=== PATIENT | female | born 1950 | race Caucasian/White ===

== ENCOUNTER 2018-09-13 15:45 | Emergency (ER) | payer OTHER, MEDICARE ==
[2018-09-13] MEDS ORDERED: SODIUM CHLORIDE 0.9% 1,000 ML IV ONE (16:15)
[2018-09-13] MEDS: ADENOSINE 6 MG/2 ML VIAL IVP STA ×2 (16:22→17:12)
--- NOTE | 2018-09-13 17:28 | ED Physician Documentation ---
History of Present Illness - Stated complaint Stated Complaint: SOA,RAPID HEART RATE - Chief complaint Chief Complaint: Cardiac - Additonal information Additional information: hx from pt 68 female hx SVT many times in the past onset today several hr ago she initially felt pain but no LOC feels palp but no sig CP or SOA tried vagal maneuvers s success no excess caffeine decongestants etc taking her thyroid meds and thyroid fxn has been fine no long distance travel ro leg swelling Review of Systems Constitutional: denies: Fever Cardiac: reports: Palpitations. denies: Chest pain / pressure Respiratory: denies: Dyspnea Musculoskeletal: denies: Extremity swelling Neurologic: reports: Near syncope. 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 : None HEENT: None Psych: None Musculoskeletal: Osteoarthritis Derm: None - Past Surgical History HEENT: Tonsil/Adenoidectomy - Present Medications Home Medications: Ambulatory Orders Medication Instructions Recorded Confirmed Aspirin [Adult Aspirin Regimen] 1 tab PO DAILY 09/13/18 09/13/18 Levothyroxine Sodium [Synthroid] 1 tab PO DAILY 09/13/18 09/13/18 - Allergies Allergies/Adverse Reactions: Allergies Allergy/AdvReac Type Severity Reaction Status Date / Time codeine AdvReac Hallucinati Verified 09/13/18 16:04 ons - Social History Does the pt smoke?: No Smoking Status: Never smoker Does the pt drink ETOH?: Yes Does the pt have substance abuse?: No - Immunizations Immunizations are current?: Yes - POLST Patient has POLST: No PD ED PE NORMAL - Vitals Vital signs reviewed: Yes - General General: Alert and oriented X 3 - Cardiac Cardiac: No: RRR (tachy) - Respiratory Respiratory: No respiratory distress, Clear bilaterally - Extremities Extremities: No edema, No calf tenderness / cord - Neuro Neuro: Alert and oriented X 3 Results - Vitals Vitals: Vital Signs - 24 hr 09/13/18 09/13/18 09/13/18 16:01 16:05 16:45 Temperature Heart Rate 177 H 180 H 94 Respiratory 18 16 16 Rate Blood Pressure 143/103 H 117/92 H 118/79 O2 Saturation 97 97 96 09/13/18 09/13/18 09/13/18 17:09 17:31 17:48 Temperature 36.6 C Heart Rate 94 91 Respiratory 14 16 Rate Blood Pressure 118/68 118/77 O2 Saturation 95 97 Oxygen O2 Source Room air - EKG (time done) 1600 Rate: Rate (enter#) (170) Rhythm: SVT Ischemia: ST depression (rate related) 1626 Rate: Rate (enter#) (101) Rhythm: NSR Intervals: Normal NM Procedures - Cardioversion 1615 Time of attempt: 16:15 Risks, benefits, alternatives explained to: Pt Prep: IV Meds: Adenocard (6) Post cardioversion rhythm: NSR Complications: Other (successful, no complications). No: Hypotension PD MEDICAL DECISION MAKING - ED course ED course: SVT hx same tried vagals in ED as well s success easily concerted with adenosine 6 mg do not feel labs necessary given hx same Departure - Departure Disposition: 01 Home, Self Care Clinical Impression: SVT (supraventricular tachycardia) Condition: Good Instructions: ED Tachycardia Pat PSVT Comments: Continue your usual medications. Minimize caffeine, decongestants and other stimulants Return if worse
[2018-09-13 17:49] VITALS: BP 118/77
== END 2018-09-13 18:04 | disposition home or self-care (01) ==
LOC: ED 15:45
DX: I47.1 Supraventricular tachycardia (principal)
CPT/HCPCS: 93005; 96360; 99283; J0153

== ENCOUNTER 2021-06-05 23:33 | Outpatient (CLI) | payer MEDICARE, OTHER | END 2021-06-05 23:34 | disposition critical access hospital (66) | LOC: EMS 23:33 | DX: U07.1 COVID-19 (principal) | CPT/HCPCS: A0425; A0429 ==

== ENCOUNTER 2021-06-06 00:05 | Emergency (ER) | payer MEDICARE, OTHER ==
[2021-06-06] MEDS ORDERED: ONDANSETRON 4 MG/2 ML VIAL IVP STA (00:10)
[2021-06-06 00:53] LABS: BASOPHILS % (AUTO) 0.2 %; EOSINOPHILS % (AUTO) 0.4 %; HGB - HEMOGLOBIN 13.7 g/dL (12.0-16.0); LYMPHOCYTES # (AUTO) 0.8 10^3/uL (1.5-3.5); LYMPHOCYTES % (AUTO) 17.2 %; MEAN CORPUSCULAR HEMOGLOBIN 29.8 pg (27.0-31.0); MEAN CORPUSCULAR HGB CONC 34.3 g/dL (32.0-36.0); MEAN PLATELET VOLUME 10.5 fL (7.9-10.8); MONOCYTES # (AUTO) 0.5 10^3/uL (0.0-1.0); MONOCYTES % (AUTO) 11.8 %; NEUTROPHILS # (AUTO) 3.1 10^3/uL (1.5-6.6); NEUTROPHILS % (AUTO) 70.2 %; PLT - PLATELET COUNT 115 10^3/uL (130-450); RED CELL DISTRIBUTION WIDTH 12.2 % (12.0-15.0); WHITE BLOOD COUNT 4.5 x10^3/uL (4.8-10.8)
[2021-06-06 00:54] LABS: VBG PH 7.426 (7.31-7.41)
[2021-06-06 00:55] LABS: VBG BASE EXCESS 1.3 mmol/L (-2 - +2); VBG HCO3 25.7 mmol/L (23-28); VBG OXYGEN SATURATION 79.3 % (60-80); VBG PO2 41.4 mmHg (25-47); VBG TOTAL CO2 26.9 mmol/L (24-29)
[2021-06-06 01:03] LABS: ALBUMIN 3.7 g/dL (3.2-5.5); BILIRUBIN,TOTAL 1.5 mg/dL (0.2-1.0); CALCIUM 8.5 mg/dL (8.5-10.3); CREATININE 1.1 mg/dL (0.4-1.0); CRP HIGH SENSITIVITY 52.4 mg/L; POTASSIUM 3.9 mmol/L (3.5-5.0); TOTAL PROTEIN 7.4 g/dL (6.7-8.2)
--- NOTE | 2021-06-06 01:08 | ED Physician Documentation ---
History of Present Illness - Stated complaint Stated Complaint: C+/ BODY ACHES/ SOA - Chief complaint Chief Complaint: Resp - History obtained from History obtained from: Patient - Additonal information Additional information: 70-year-old woman with history of coagulopathy, high blood pressure, hypothyroidism status post thyroidectomy, heart surgery "for tachycardia about three years ago" presents with positive Covid test May 25 and 1 week worsening Covid symptoms of shortness of breath, nausea, productive cough, vomiting today, chest pain worse with deep breathing. Denies history of clots. Not on estrogen, denies leg swelling denies diarrhea or abdominal pain. Review of Systems Ten Systems: 10 systems reviewed and negative Constitutional: reports: Fever, Chills, Myalgias, Fatigue Cardiac: reports: Chest pain / pressure Respiratory: reports: Dyspnea, Cough GI: reports: Nausea, Vomiting. 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 : None HEENT: None Psych: None Musculoskeletal: Osteoarthritis Derm: None - Past Surgical History Past Surgical History: Yes HEENT: Tonsil/Adenoidectomy - Present Medications Home Medications: Ambulatory Orders Medication Instructions Recorded Confirmed Aspirin [Adult Aspirin Regimen] 1 tab PO DAILY 09/13/18 06/06/21 Levothyroxine Sodium [Synthroid] 1 tab PO DAILY 09/13/18 06/06/21 - Allergies Allergies/Adverse Reactions: Allergies Allergy/AdvReac Type Severity Reaction Status Date / Time codeine AdvReac Hallucinati Verified 06/06/21 01:31 ons - Social History Does the pt smoke?: No Smoking Status: Never smoker Does the pt drink ETOH?: Yes Does the pt have substance abuse?: No - Immunizations Immunizations are current?: Yes - POLST Patient has POLST: No PD ED PE NORMAL - Vitals Vital signs reviewed: Yes - General General: Alert and oriented X 3, Other (older woman, appears stated age, uncomfortable appearing) - HEENT HEENT: Atraumatic, PERRL, EOMI, Pharynx benign - Neck Neck: Supple, no meningeal sign - Cardiac Cardiac: RRR - Respiratory Respiratory: Other (BL rhonchi) - Abdomen Abdomen: Non tender, Non distended - Derm Derm: Normal color, Warm and dry - Extremities Extremities: No deformity - Neuro Neuro: Alert and oriented X 3 - Psych Psych: Normal mood, Normal affect Results - Vitals Vitals: Vital Signs - 24 hr 06/06/21 06/06/21 06/06/21 00:00 02:16 04:22 Temperature 36.4 C L Heart Rate 83 85 103 H Respiratory 18 19 20 Rate Blood Pressure 126/82 H 134/83 H 141/88 H O2 Saturation 95 95 98 Oxygen O2 Source Room air - EKG (time done) 0014 Rate: Rate (enter#) (86) Rhythm: NSR [place]: Normal Intervals: Normal UT QRS: Normal Ischemia: Other (no stemi) - Labs Labs: Laboratory Tests 06/06/21 06/06/21 06/06/21 00:40 00:40 00:40 WBC 4.5 L RBC 4.60 Hgb 13.7 Hct 40.0 MCV 87.0 MCH 29.8 MCHC 34.3 RDW 12.2 Plt Count 115 L MPV 10.5 Neut # (Auto) 3.1 Lymph # (Auto) 0.8 L [place] # (Auto) 0.5 Eos # (Auto) 0.0 Baso # (Auto) 0.0 Absolute Nucleated RBC 0.00 Nucleated RBC % 0.0 ESR 41 H D-Dimer VBG pH VBG pCO2 VBG pO2 VBG HCO3 VBG Total CO2 VBG O2 Saturation VBG Base Excess Sodium 133 L Potassium 3.9 Chloride 96 L Carbon Dioxide 24 Anion Gap 13.0 BUN 25 H Creatinine 1.1 H Estimated GFR (MDRD) 49 L Glucose 122 H Lactic Acid Calcium 8.5 Total Bilirubin 1.5 H AST 33 ALT 25 Alkaline Phosphatase 60 C-React Prot High Sens 52.4 Total Protein 7.4 Albumin 3.7 Globulin 3.7 Albumin/Globulin Ratio 1.0 Lipase 41 06/06/21 06/06/21 06/06/21 00:40 00:40 00:55 WBC RBC Hgb Hct MCV MCH MCHC RDW Plt Count MPV Neut # (Auto) Lymph # (Auto) [place] # (Auto) Eos # (Auto) Baso # (Auto) Absolute Nucleated RBC Nucleated RBC % ESR D-Dimer 726.4 H VBG pH 7.426 H VBG pCO2 40.0 L VBG pO2 41.4 VBG HCO3 25.7 VBG Total CO2 26.9 VBG O2 Saturation 79.3 VBG Base Excess 1.3 Sodium Potassium Chloride Carbon Dioxide Anion Gap BUN Creatinine Estimated GFR (MDRD) Glucose Lactic Acid 0.9 Calcium Total Bilirubin AST ALT Alkaline Phosphatase C-React Prot High Sens Total Protein Albumin Globulin Albumin/Globulin Ratio Lipase PD MEDICAL DECISION MAKING - ED course ED course: Patient felt better, no longer symptomatic s/p IV zofran. d-dimer elevated. will obtain CTA to eval for PE given hypercoaguability at baseline in conjunction with covid-19 symptoms which put her at further risk of clots. CTA negative. strict return precautions discussed. Regeneron information provided and patient may return tomorrow for MAB treatment. Departure - Departure Disposition: 01 Home, Self Care Clinical Impression: COVID-19 Condition: Stable Instructions: COVID-19 [facility], COVID-19 [facility]ly [facility] Department Statement Comments: You were seen in the emergency department for a mild case of COVID-19. Your labwork and CT of the chest did not show severe changes requiring hospitalization. However, given your older age (greater than 65 years of age) and medical history, you do meet criteria for Regeneron monoclonal antibody treatment. This is offered through our pharmacy Wednesday through Wednesday during normal business hours. You should call ahead to make sure that the pharmacy is able to provide the treatment and then check into the emergency department for 1 hour infusion followed by 1 hour observation. Please note that you should follow-up with your primary doctor via telehealth as well and return to the emergency department immediately if you have worsening shortness of breath, or any other new or worsening symptoms or other concerns.
[2021-06-06] MEDS ORDERED: SODIUM CHLORIDE 0.9% 1,000 ML IV STA (01:56)
[2021-06-06] MEDS ORDERED: IOPAMIDOL-300 100 ML VIAL ONE (02:40)
[2021-06-06] MEDS ORDERED: IOPAMIDOL-300 100 ML VIAL IVP ONE (03:35)
[2021-06-06 06:26] VITALS: BP 140/80
--- NOTE | 2021-06-06 07:56 | XRAY Report ---
PROCEDURE: Chest 1 View X-Ray INDICATIONS: covid+ TECHNIQUE: One view of the chest was acquired. COMPARISON: None FINDINGS: Surgical changes and devices: None. Lungs and pleura: No pleural effusions or pneumothorax. Ill-defined patchy opacities noted in the kalee ng bases bilaterally which could represent atelectasis or early pneumonia. Mediastinum: Mediastinal contours appear normal. Heart size is normal. Bones and chest wall: No suspicious bony lesions. Overlying soft tissues appear unremarkable. IMPRESSION: Bibasilar atelectasis versus early pneumonia. Reviewed by: Alexandra Vee MD, PhD on 06/06/2021 7:55 AM PDT Approved by: Alexandra Vee MD, PhD on 06/06/2021 7:55 AM PDT Station ID: [id number]
--- NOTE | 2021-06-06 09:04 | CT Report ---
PROCEDURE: ANGIO CHEST W/WO INDICATIONS: elevated d-dimer, +covid, hypercoagulable CONTRAST: IV CONTRAST: Isovue 300 ml: 80 PO CONTRAST: *NO PO CONTRAST TECHNIQUE: After the administration of intravenous contrast, images were acquired from the pulmonary apices to t he posterior costophrenic angles. 3-dimensional maximum intensity projection (MIP) coronal and sagit cholo reformats were then acquired through the thorax. For radiation dose reduction, the following was used: automated exposure control, adjustment of mA and/or kV according to patient size. COMPARISON: Chest x-ray 06/06/2021 FINDINGS: Image quality: Excellent. Pulmonary arteries: Pulmonary arteries are normal in size, and demonstrate no intraluminal filling d efects to suggest central pulmonary embolism. Lungs and pleura: Patchy confluent areas of groundglass opacity are present within the lungs bilatera lly, in a predominantly peripheral pattern. No pleural effusions or pneumothorax. Central and periph eral airways are patent. Mediastinum: Heart size is normal, without pericardial effusion. Borderline prominence of mediastina l and hilar lymph nodes. Thoracic aorta is normal in caliber and enhancement. Esophagus is normal in caliber, with mild hiatal hernia. Bones and chest wall: No suspicious bony lesions. Ribs and thoracic spine appear intact throughout. No axillary or supraclavicular adenopathy. The thyroid is normal in size and there are no incident al findings. Postsurgical changes are noted within the right lower neck, incompletely visualized. Abdomen: Spleen is enlarged. Left renal cyst is noted. Otherwise, visualized upper abdominal solid o rgans appear normal in the early arterial phase of enhancement. IMPRESSION: 1. Groundglass opacities bilaterally most consistent with pneumonia. 2. Borderline enlarged based on hilar lymph nodes suspected to be reactive in nature. 3. No pulmonary embolism. The above findings are concordant with preliminary report. Reviewed by: Belgica Barclay MD on 06/06/2021 9:02 AM PDT Approved by: Belgica Barclay MD on 06/06/2021 9:02 AM PDT Station ID: [id number]
== END 2021-06-06 06:20 | disposition home or self-care (01) ==
LOC: ED 00:05
DX: U07.1 COVID-19 (principal); R79.89 Other specified abnormal findings of blood chemistry; D68.59 Other primary thrombophilia
CPT/HCPCS: 36415; 71045; 71275; 80053; 82803; 83605; 83690; 85025; 85379; 85651; 86141; 87040; 93005; 96374; 99284; Q9967

== ENCOUNTER 2021-06-06 06:19 | Outpatient (CLI) | payer MEDICARE, OTHER | END 2021-06-06 06:20 | disposition home or self-care (01) | LOC: EMS 06:19 | PROVIDERS: ATTEND Emergency Medicine | DX: U07.1 COVID-19 (principal) | CPT/HCPCS: A0425; A0428 ==

== ENCOUNTER 2021-06-09 14:30 | Emergency (ER) | payer MEDICARE, OTHER ==
--- NOTE | 2021-06-09 15:22 | ED Physician Documentation ---
PD HPI URI - Stated complaint Stated Complaint: C+ HIGH HR - History obtained from History obtained from: Patient - History of Present Illness Timing - onset: How many days ago (12-13) Timing duration: Weeks (2) Timing details: Abrupt onset, Now resolved (She has persistent cough and wheezing. She has not had fevers for for 5 days. Still general weakness and some dyspnea on exertion.) Associated symptoms: No: Fever (not for several days), Chills Contributing factors: Sick contact (her is in the hospital with COVID currently, on oxygen supplementation.), Unimmunized Similar symptoms before: Has not had sx before Recently seen: Emergency Dept (She was seen 3 days ago for dyspnea related to the Covid. She had blood tests chest x-ray and a CT of the chest. 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 : None HEENT: None Psych: None Musculoskeletal: Osteoarthritis Derm: None - Past Surgical History Past Surgical History: Yes HEENT: Tonsil/Adenoidectomy - Present Medications Home Medications: Ambulatory Orders Medication Instructions Recorded Confirmed Aspirin [Adult Aspirin Regimen] 1 tab PO DAILY 09/13/18 06/06/21 Levothyroxine Sodium [Synthroid] 1 tab PO DAILY 09/13/18 06/09/21 Amoxicillin/Potassium Clav 1 each PO 06/09/21 [Augmentin Xr 1,000-62.5 Tab] Budesonide/Formoterol Fumarate 90 mcg IH QID 06/09/21 06/09/21 [Symbicort 80-4.5 Mcg Inhaler] Fluticasone 110 Mcg [Flovent] 110 BID 06/09/21 - Allergies Allergies/Adverse Reactions: Allergies Allergy/AdvReac Type Severity Reaction Status Date / Time codeine AdvReac Hallucinati Verified 06/06/21 01:31 ons - Social History Does the pt smoke?: No Smoking Status: Never smoker Does the pt drink ETOH?: Yes Does the pt have substance abuse?: No - Immunizations Immunizations are current?: Yes - POLST Patient has POLST: No PD ED PE NORMAL - Vitals Vital signs reviewed: Yes - General General: Alert and oriented X 3, No acute distress, Well developed/nourished - HEENT HEENT: Pharynx benign - Neck Neck: Supple, no meningeal sign, No adenopathy - Cardiac Cardiac: RRR, No murmur - Respiratory Respiratory: Clear bilaterally - Abdomen Abdomen: Soft, Non tender - Derm Derm: Normal color, Warm and dry - Extremities Extremities: No edema, No calf tenderness / cord - Neuro Neuro: Alert and oriented X 3, No motor deficit, Normal speech Results - Vitals Vitals: Vital Signs - 24 hr 06/09/21 06/09/21 15:24 16:19 Temperature 36.2 C L 36.2 C L Heart Rate 80 88 Respiratory 20 18 Rate Blood Pressure 134/84 H 138/85 H O2 Saturation 91 L 97 Oxygen O2 Source Room air PD MEDICAL DECISION MAKING - ED course Complexity details: reviewed old records, considered differential (She still has some coughing in dyspnea on exertion. Her provider wrote for albuterol inhaler, oral steroid, amoxicillin antibiotic. She was here in the ER 3 days ago with suggestion of the monoclonal antibody infusion. However she is at this point 13 days after her positive Covid test.), d/w patient ED course: She is 12 to 13 days after her Covid test positive and has not had fevers or such for for 5 days. She would have minimal to no benefit from the monoclonal antibody infusion this late in the course of it. We discussed the intention of the antibody infusion being earlier in the infection to support the in a to immune system. She understands this and given the minimal to no improvement, would prefer not to get the infusion. Departure - Departure Disposition: 01 Home, Self Care Clinical Impression: COVID-19 Dyspnea Qualifiers: Dyspnea type: dyspnea on exertion Qualified Code(s): R06.00 - Dyspnea, unspecified Condition: Stable Record reviewed to determine appropriate education?: Yes Follow-Up: Chasity Browne MD [Primary Care Provider] - Comments: The added benefit of IV monoclonal antibodies diminishes after you have been sick a while because your own body is creating antibodies to. The Regeneron (monoclonal antibody) is typically not indicated after 10 days of illness as the benefit is significantly decreased. I would continue with your albuterol inhaler and the recently prescribed steroids. You can do the antibiotic as well for potential secondary infection in addition to the Covid virus. You can also do the incentive spirometer 4 times daily to help improve aeration through the alveoli of the lungs. Stay well-hydrated. Tylenol if needed for headaches or other pains or aches. Discharge Date/Time: 06/09/21 16:21
[2021-06-09 16:20] VITALS: BP 138/85
== END 2021-06-09 16:21 | disposition home or self-care (01) ==
LOC: ED 14:30
DX: U07.1 COVID-19 (principal); R06.00 Dyspnea, unspecified; R05 Cough; Z79.82 Long term (current) use of aspirin
CPT/HCPCS: 99281; 99283